=== PATIENT | male | born 1985 | race Caucasian/White ===

== ENCOUNTER 2018-01-28 03:04 | Emergency (ER) | payer SELFPAY ==
[~2018-01-28] VITALS: Ht 170.2 cm; Wt 93.9 kg
[2018-01-28 03:09] VITALS: BP 156/90; Ht 170.2 cm; Wt 93.9 kg
== END 2018-01-28 03:47 | disposition left against medical advice (07) ==
LOC: ED 03:04
DX: Z53.21 Procedure and treatment not carried out due to patient leaving prior to being seen by health care provider (principal)